=== PATIENT | female | born 1980 | race African-American/Black ===

== ENCOUNTER 2018-10-31 17:11 | Observation (INO) ==
[2018-10-31] MEDS ORDERED: PROMETHAZINE 25 MG/1 ML VIAL IM PRN (17:22)
[2018-10-31] MEDS ORDERED: MULTIVITAMIN INJ 10 ML in SODIUM CHLORIDE 0.9% 1,000 ML IV SCH (18:00)
[2018-10-31] MEDS: ONDANSETRON 4 MG/2 ML VIAL IV PRN (20:28)
[2018-10-31] MEDS: ceFAZolin 1,000 MG in SYRINGE 1 EACH IV SCH (20:30)
[2018-10-31 21:47] LABS: Basophils # 0.1 10*3/uL (0.0-0.2); Basophils % 0.4 % (0.0-0.8); Eosinophils # 0.1 10*3/uL (0.0-0.87); Eosinophils % 0.9 % (0.00-10.9); Hematocrit 34.9 VOL% (35.7-47.0); Hemoglobin 10.3 GM/DL (12.0-16.0); Immature Granulocytes % 0.6 %; Immature Granulocytes Absolute 0.07 #; Lymphocytes % 23.7 % (21.3-54.2); Mean Corpuscular HGB Conc 29.5 GM/DL (32-36); Mean Corpuscular Hemoglobin 21 PG (27-34); Mean Corpuscular Volume 71.5 FL (87-102); Mean Platelet Volume 11.2 FL (9.6-12.0); Monocytes # 1.1 10*3/uL (0.11-0.8); Monocytes % 8.5 % (1.7-12.7); Neutrophils # 8.3 10*3/uL (1.4-7.4); Neutrophils % 65.9 % (38.7-73.9); Platelet Count 347 T/CUMM (130-400); Red Blood Count 4.88 MC/CUMM (3.8-5.5); Red Cell Distribution Width 16.8 % (9.3-17.3); White Blood Count 12.5 T/CUMM (4-12)
[2018-10-31 22:07] LABS: Albumin 2.6 G/DL (3.4-5.0); Bilirubin,Total 0.8 MG/DL (0.2-1.0); Calcium 8.3 MG/DL (8.5-10.1); Free T4 (Free Thyroxine) 1.68 NG/DL (0.76-1.46); Osmolality,Calculated 267.1 MOS/KG (273-304); Potassium 3.2 MMOL/L (3.5-5.1); Thyroid Stimulating Hormone 0.867 uIU/ml (0.358-3.74); Total Protein 6.4 G/DL (6.4-8.3)
[2018-10-31] MEDS ORDERED: POTASSIUM CHLORIDE INJ 40 MEQ in SODIUM CHLORIDE 0.9% 380 ML IV SCH (22:30)
[2018-11-01] MEDS: ceFAZolin 1,000 MG in SYRINGE 1 EACH IV SCH ×3 (03:40→20:21)
[2018-11-01] MEDS: LEVOTHYROXINE 125 MCG TABLET PO SCH (05:56)
[2018-11-01] MEDS: PANTOPRAZOLE 40 MG TABLET PO SCH (09:06)
[2018-11-01] MEDS: DEXTROSE 5% LACTATED RINGERS 1,000 ML IV SCH ×3 (11:27→19:20)
[2018-11-01] MEDS ORDERED: ALUMINUM/MAGNES/SIMETH MAX STR 30 ML UDCUP PO PRN (19:39)
[2018-11-01] MEDS: ONDANSETRON 4 MG/2 ML VIAL IV PRN (21:00)
[2018-11-02] MEDS ORDERED: SODIUM CHLORIDE 0.9% 50 ML IV ONE (03:13)
[2018-11-02] MEDS: ceFAZolin 1,000 MG in SYRINGE 1 EACH IV SCH (03:21)
[2018-11-02] MEDS: DEXTROSE 5% LACTATED RINGERS 1,000 ML IV SCH ×2 (03:26)
[2018-11-02] MEDS: LEVOTHYROXINE 125 MCG TABLET PO SCH (05:56)
[2018-11-02 07:15] VITALS: BP 115/76
[2018-11-02] MEDS: PANTOPRAZOLE 40 MG TABLET PO SCH (08:50)
[2018-11-02 09:46] LABS: Albumin 2.4 G/DL (3.4-5.0); Bilirubin,Total 0.6 MG/DL (0.2-1.0); Osmolality,Calculated 270.8 MOS/KG (273-304); Potassium 3.6 MMOL/L (3.5-5.1); Total Protein 5.8 G/DL (6.4-8.3)
== END 2018-11-02 11:30 | disposition home or self-care (01) ==
LOC: N.OB 17:11 → INTOOBSV 17:11
PROVIDERS: ADMIT Obstetrics & Gynecology; ATTEND Obstetrics & Gynecology

== ENCOUNTER 2019-05-09 11:19 | Inpatient (IN) ==
[2019-05-09 12:16] LABS: Basophils % 0.2 % (0.0-0.8); Eosinophils # 0.2 10*3/uL (0.0-0.87); Eosinophils % 2.2 % (0.00-10.9); Hemoglobin 8.1 GM/DL (12.0-16.0); Immature Granulocytes % 0.4 %; Immature Granulocytes Absolute 0.04 #; Lymphocytes # 2.4 10*3/uL (1.4-4.0); Lymphocytes % 24.9 % (21.3-54.2); Mean Corpuscular HGB Conc 28.9 GM/DL (32-36); Mean Corpuscular Volume 71.8 FL (87-102); Mean Platelet Volume 10.7 FL (9.6-12.0); Monocytes % 8.2 % (1.7-12.7); Neutrophils % 64.1 % (38.7-73.9); Platelet Count 394 T/CUMM (130-400); Red Cell Distribution Width 15.6 % (9.3-17.3); White Blood Count 9.7 T/CUMM (4-12)
[2019-05-09 12:26] LABS: INR 0.9; PT Patient Result 9.4 SECS; Partial Thromboplastin Time 25.8 SECS (0-40)
[2019-05-09 12:34] LABS: Hypochromasia 1+; Microcytosis 1+; Ovalocytes Slight
[2019-05-09 12:35] LABS: Platelet Estimate Normal; Polychromasia Slight
[2019-05-09 12:44] LABS: Albumin 2.3 G/DL (3.4-5.0); Bilirubin,Direct 0.13 MG/DL (0.0-0.20); Bilirubin,Total 0.4 MG/DL (0.2-1.0); Calcium 8.1 MG/DL (8.5-10.1); Osmolality,Calculated 272.7 MOS/KG (273-304); Total Protein 6.3 G/DL (6.4-8.3); Uric Acid 3.2 MG/DL (2.6-6.0)
[2019-05-09] MEDS ORDERED: BETAMETH SODIUM PHOS/ACETATE 30 MG/5 ML VIAL IM SCH (13:30)
[2019-05-09 14:13] LABS: Apearance,Urine CLEAR (Clear); Bilirubin,Urine Negative (Negative); Blood, Urine Negative (Negative); Glucose,Urine (UA) Negative (Negative); Ketones,Urine Negative (Negative); Mucus,Urine Occasional /LPF (Occasional); Nitrite,Urine Negative (Negative); Protein,Urine Negative; RBC,Urine <1 /HPF (0-4); Squamous Epithelial Cell,Urine Occasional /HPF (0-10); Urine Color Yellow (Yellow); Urine Specific Gravity 1.012 (1.001-1.035); WBC,Urine <1 /HPF (0-6)
[2019-05-09] MEDS ORDERED: ONDANSETRON 4 MG/2 ML VIAL IV PRN (14:23)
[2019-05-09] MEDS ORDERED: MEPERIDINE 50 MG/1 ML VIAL IV PRN (14:23)
[2019-05-09] MEDS ORDERED: MAGNESIUM SULF RIDER 4 GM in PREMIX 1 EACH IV ONE (14:28)
[2019-05-09] MEDS ORDERED: OXYTOCIN/LR 20 UNIT/1,000 ML BAG IV SCH (14:30)
[2019-05-09] MEDS ORDERED: LACTATED RINGERS 1,000 ML IV SCH (14:30)
[2019-05-09] MEDS ORDERED: MAGNESIUM SULF DRIP 40 GM/1,000 ML ML IV SCH (14:30)
[2019-05-09] MEDS: hydrALAZINE 20 MG/1 ML VIAL IV PRN ×2 (15:00→15:36)
[2019-05-09] MEDS ORDERED: AMPICILLIN INJ 2,000 MG in SODIUM CHLORIDE 0.9% 100 ML IV ONE (16:30)
[2019-05-09 17:04] LABS: Apearance,Urine CLEAR (Clear); Bilirubin,Urine Negative (Negative); Blood, Urine Negative (Negative); Glucose,Urine (UA) Negative (Negative); Ketones,Urine 5 mg/dL (Negative); Mucus,Urine Occasional /LPF (Occasional); Nitrite,Urine Negative (Negative); Protein,Urine Negative; RBC,Urine 1 /HPF (0-4); Squamous Epithelial Cell,Urine Occasional /HPF (0-10); Urine Color Yellow (Yellow); Urine Specific Gravity 1.005 (1.001-1.035); Urine Urobilinogen < 2.0 EU/DL (0.2-1.0); WBC,Urine <1 /HPF (0-6)
[2019-05-09] MEDS: BUTORPHANOL 2 MG/ML VIAL IV PRN ×2 (18:54→22:37)
[2019-05-09] MEDS: AMPICILLIN INJ 1,000 MG in SODIUM CHLORIDE 0.9% 100 ML IV SCH (20:23)
[2019-05-09] MEDS ORDERED: ACETAMINOPHEN 500 MG TABLET PO PRN (21:23)
[2019-05-10] MEDS: AMPICILLIN INJ 1,000 MG in SODIUM CHLORIDE 0.9% 100 ML IV SCH ×2 (00:05→06:37)
[2019-05-10] MEDS: BUTORPHANOL 2 MG/ML VIAL IV PRN (01:41)
[2019-05-10] MEDS ORDERED: OXYTOCIN/LR 20 UNIT/1,000 ML BAG IV ONE ×2 (01:57→02:56)
[2019-05-10] MEDS ORDERED: miSOPROStol 200 MCG TABLET ONE (01:57)
[2019-05-10] MEDS ORDERED: TRANEXAMIC ACID 1,000 MG/10 ML VIAL ONE (01:57)
[2019-05-10] MEDS ORDERED: METHYLERGONOVINE 0.2 MG/1 ML AMP ONE (01:57)
[2019-05-10] MEDS ORDERED: CARBOPROST TROMETHAMINE 250 MCG/ML AMP IM ONE (01:58)
[2019-05-10 02:44] LABS: Hematocrit 28.4 VOL% (35.7-47.0); Hemoglobin 8.2 GM/DL (12.0-16.0)
[2019-05-10] MEDS ORDERED: WITCH HAZEL PADS 100/JAR TOP PRN (02:56)
[2019-05-10] MEDS ORDERED: HYDROCORTISONE 2.5% RECTAL CREAM 30 GM TUBE TOP PRN (02:56)
[2019-05-10] MEDS ORDERED: ACETAMINOPHEN 325 MG TABLET PO PRN (02:56)
[2019-05-10] MEDS ORDERED: DIPH/TET/ACEL PERT BOOSTER VACCINE 0.5 ML VIAL IM ONE (02:56)
[2019-05-10] MEDS ORDERED: oxyCODONE/ACETAMINOPHEN 5-325 MG TABLET PO PRN ×2 (02:56)
[2019-05-10] MEDS ORDERED: IBUPROFEN 800 MG TABLET PO PRN (02:56)
[2019-05-10] MEDS ORDERED: BENZOCAINE 20%/MENTHOL 0.5% SPRAY 56 GM CAN TOP PRN (02:56)
[2019-05-10] MEDS ORDERED: BISACODYL 10 MG SUPP RECTAL PRN (02:56)
[2019-05-10] MEDS ORDERED: RHO(D) IMMUNE GLOBULIN 300 MCG SYRINGE IM ONE (02:56)
[2019-05-10] MEDS ORDERED: MEASLES/MUMPS/RUBELLA VACCINE 0.5 ML VIAL SUBCUT ONE (02:56)
[2019-05-10] MEDS ORDERED: ONDANSETRON 4 MG/2 ML VIAL IV PRN (02:56)
[2019-05-10] MEDS ORDERED: LANOLIN 50% CREAM 0.3 OZ TUBE TOP PRN (02:56)
[2019-05-10] MEDS ORDERED: SODIUM CHLORIDE 0.9% 1,000 ML IV PRN (04:10)
[2019-05-10 05:20] LABS: Basophils # 0.1 10*3/uL (0.0-0.2); Basophils % 0.2 % (0.0-0.8); Hematocrit 31.1 VOL% (35.7-47.0); Hemoglobin 8.8 GM/DL (12.0-16.0); Immature Granulocytes % 0.8 %; Immature Granulocytes Absolute 0.23 #; Lymphocytes # 2.1 10*3/uL (1.4-4.0); Lymphocytes % 7.4 % (21.3-54.2); Mean Corpuscular HGB Conc 28.3 GM/DL (32-36); Mean Corpuscular Volume 73.2 FL (87-102); Mean Platelet Volume 11.9 FL (9.6-12.0); Monocytes % 3.7 % (1.7-12.7); NRBC # 0.02 10*3/uL; Neutrophils % 87.9 % (38.7-73.9); Platelet Count 564 T/CUMM (130-400); Red Blood Count 4.25 MC/CUMM (3.8-5.5); Red Cell Distribution Width 15.9 % (9.3-17.3); White Blood Count 28.1 T/CUMM (4-12)
[2019-05-10 05:42] LABS: Band Neutrophils 2 % (0-10); Eosinophils 1 % (0-10); Lymphocytes 9 % (20-55); Segmented Neutrophils 86 % (50-85); Total Cells Counted 100
[2019-05-10 05:43] LABS: Hypochromasia 1+; Microcytosis 1+; Platelet Estimate Increased
[2019-05-10] MEDS: DOCUSATE SODIUM 100 MG CAPSULE PO SCH ×2 (10:36→21:32)
[2019-05-10 12:39] LABS: Basophils % 0.2 % (0.0-0.8); Hematocrit 26.4 VOL% (35.7-47.0); Immature Granulocytes % 0.7 %; Immature Granulocytes Absolute 0.15 #; Lymphocytes # 2.9 10*3/uL (1.4-4.0); Lymphocytes % 14.2 % (21.3-54.2); Mean Corpuscular HGB Conc 30.3 GM/DL (32-36); Mean Corpuscular Volume 73.5 FL (87-102); Mean Platelet Volume 11.3 FL (9.6-12.0); Monocytes % 7.9 % (1.7-12.7); Platelet Count 406 T/CUMM (130-400); Red Blood Count 3.59 MC/CUMM (3.8-5.5); Red Cell Distribution Width 17.2 % (9.3-17.3); White Blood Count 20.6 T/CUMM (4-12)
[2019-05-10 16:20] LABS: Lymphocytes 8 % (20-55); Segmented Neutrophils 90 % (50-85); Total Cells Counted 100
[2019-05-10 16:23] LABS: Hypochromasia 1+; Microcytosis 1+; Platelet Satellitism 1+
[2019-05-10] MEDS ORDERED: PANTOPRAZOLE 40 MG TABLET PO ONE (20:24)
[2019-05-11] MEDS: LEVOTHYROXINE 125 MCG TABLET PO SCH (06:06)
[2019-05-11] MEDS: PANTOPRAZOLE 40 MG TABLET PO SCH (08:21)
[2019-05-11] MEDS: DOCUSATE SODIUM 100 MG CAPSULE PO SCH ×2 (08:21→20:31)
[2019-05-12] MEDS: LEVOTHYROXINE 125 MCG TABLET PO SCH (06:53)
[2019-05-12 07:48] VITALS: BP 141/82
[2019-05-12] MEDS: DOCUSATE SODIUM 100 MG CAPSULE PO SCH (09:00)
[2019-05-12] MEDS: PANTOPRAZOLE 40 MG TABLET PO SCH (09:00)
== END 2019-05-12 13:35 | disposition home or self-care (01) | DRG 768 ==
LOC: N.LDOUT 11:19 → N.LD 11:21 → N.OB 05-10 10:57
PROVIDERS: ADMIT Obstetrics & Gynecology; ATTEND Obstetrics & Gynecology